=== PATIENT | female | born 1955 | race Caucasian/White ===

== ENCOUNTER 2018-09-12 11:57 | Outpatient (RCR) | payer BC | END 2018-12-11 | disposition home or self-care (01) | LOC: LAB 11:57 | PROVIDERS: ATTEND Pediatrics | DX: R19.7 Diarrhea, unspecified (principal) | CPT/HCPCS: 87015; 87045; 87046; 87899 ==

== ENCOUNTER 2018-10-22 18:29 | Emergency (ER) | payer BC ==
[~2018-10-22] VITALS: Ht 167.6 cm; Wt 93.9 kg
[2018-10-22 18:59] LABS: BASOPHILS % (AUTO) 0 % (0-10); EOSINOPHILS # (AUTO) 0.2 10^3/uL (0.0-0.3); EOSINOPHILS % (AUTO) 1 % (0-10); HEMATOCRIT 35 % (35-52); LYMPHOCYTES # (AUTO) 1.7 X 10^3 (1.0-4.0); LYMPHOCYTES % (AUTO) 16 % (12-44); MEAN CORPUSCULAR HEMOGLOBIN 25 PG (25-34); MEAN CORPUSCULAR HGB CONC 32 G/DL (32-36); MEAN CORPUSCULAR VOLUME 79 FL (80-99); MEAN PLATELET VOLUME 8.2 FL (7.4-10.4); MONOCYTES # (AUTO) 0.7 X 10^3 (0.0-1.0); MONOCYTES % (AUTO) 7 % (0-12); NEUTROPHILS % (AUTO) 75 % (42-75); PLATELET COUNT 314 10^3/uL (130-400); RED CELL DISTRIBUTION WIDTH 16.4 % (10.0-14.5); WHITE BLOOD COUNT 10.6 10^3/uL (4.3-11.0)
--- NOTE | 2018-10-22 18:59 | ED Back Pain ---
General Chief Complaint: Back Problems Stated Complaint: LOWER BACK PAIN/POSS KIDNEY STONE Nursing Triage Note: pt arrived pov with c/o lower left flank pain since tuesday. Pt was seen and put on cipro and is currently taking it. pt says pain is getting worse. Nursing Sepsis Screen: No Definite Risk Source of Information: Patient Exam Limitations: No Limitations History of Present Illness Date Seen by Provider: Oct 22, 2018 Time Seen by Provider: 18:57 Initial Comments To ER per private vehicle with reports of left posterior and anterior leg pain since Tuesday10/18/18. She has associated nausea without vomiting she also has diarrhea. She was seen at [facility] yesterday and diagnosed with urinary tract infection started on Cipro. She reports worsening of symptoms today. No fevers. No burning on urination or any dysuria. Location: Other (left flank) Timing/Duration: 3-4 Days Severity: Moderate Associated Symptoms: denies symptoms Allergies and Home Medications Allergies Coded Allergies: codeine (Verified Allergy, Unknown, 10/22/18) Patient Home Medication List Home Medication List Reviewed: Yes Review of Systems Constitutional: see HPI; No chills, No fever EENTM: see HPI Respiratory: no symptoms reported Cardiovascular: no symptoms reported Gastrointestinal: abdominal pain, diarrhea; No nausea Genitourinary: see HPI; No dysuria, No nocturia Musculoskeletal: no symptoms reported Skin: no symptoms reported Psychiatric/Neurological: No Symptoms Reported Past Xiixpnj-Jhgvko-Rtmzmq Hx Patient Social History Recent Foreign Travel: No Contact w/Someone Who Travel: No Recent Infectious Disease Expo: No Physical Exam Vital Signs Vital Signs - First Documented 10/22/18 18:32 Temp 98.3 Resp 18 B/P (MAP) 147/82 (103) O2 Delivery Room Air Capillary Refill : Less Than 3 Seconds Height, Weight, BMI Height: 5'6.00" Weight: 207lbs. oz. 93.410497lw; BMI Method:Stated General Appearance: WD/WN, Mild Distress (related to pain) HEENT: PERRL/EOMI, TMs Normal Neck: Full Range of Motion, Normal Inspection Respiratory: Normal Breath Sounds, No Accessory Muscle Use, No Respiratory Distress Gastrointestinal: Normal Bowel Sounds, Soft, Tenderness Neurologic/Psychiatric: Alert, Oriented x3 Skin: Normal Color, Warm/Dry Progress/Results/Core Measures Results/Orders Lab Results Laboratory Tests Test 10/22/18 18:53 10/22/18 19:01 Range/Units White Blood Count 10.6 4.3-11.0 10^3/uL Red Blood Count 4.39 4.35-5.85 10^6/uL Hemoglobin 11.0 L 11.5-16.0 G/DL Hematocrit 35 35-52 % Mean Corpuscular Volume 79 L 80-99 FL Mean Corpuscular Hemoglobin 25 25-34 PG Mean Corpuscular Hemoglobin Concent 32 32-36 G/DL Red Cell Distribution Width 16.4 H 10.0-14.5 % Platelet Count 314 130-400 10^3/uL Mean Platelet Volume 8.2 7.4-10.4 FL Neutrophils (%) (Auto) 75 42-75 % Lymphocytes (%) (Auto) 16 12-44 % Monocytes (%) (Auto) 7 0-12 % Eosinophils (%) (Auto) 1 0-10 % Basophils (%) (Auto) 0 0-10 % Neutrophils # (Auto) 8.0 H 1.8-7.8 X 10^3 Lymphocytes # (Auto) 1.7 1.0-4.0 X 10^3 Monocytes # (Auto) 0.7 0.0-1.0 X 10^3 Eosinophils # (Auto) 0.2 0.0-0.3 10^3/uL Basophils # (Auto) 0.0 0.0-0.1 10^3/uL Sodium Level 141 135-145 MMOL/L Potassium Level 3.7 3.6-5.0 MMOL/L Chloride Level 109 H 98-107 MMOL/L Carbon Dioxide Level 22 21-32 MMOL/L Anion Gap 10 5-14 MMOL/L Blood Urea Nitrogen 9 7-18 MG/DL Creatinine 0.62 0.60-1.30 MG/DL Estimat Glomerular Filtration Rate > 60 BUN/Creatinine Ratio 15 Glucose Level 116 H 70-105 MG/DL Calcium Level 9.4 8.5-10.1 MG/DL Corrected Calcium 9.5 8.5-10.1 MG/DL Total Bilirubin 0.5 0.1-1.0 MG/DL Aspartate Amino Transf (AST/SGOT) 12 5-34 U/L Alanine Aminotransferase (ALT/SGPT) 15 0-55 U/L Alkaline Phosphatase 89 40-136 U/L Total Protein 7.1 6.4-8.2 GM/DL Albumin 3.9 3.2-4.5 GM/DL Urine Color YELLOW Urine Clarity CLEAR Urine pH 7 5-9 Urine Specific Ecru 1.010 L 1.016-1.022 Urine Protein NEGATIVE NEGATIVE Urine Glucose (UA) NEGATIVE NEGATIVE Urine Ketones NEGATIVE NEGATIVE Urine Nitrite NEGATIVE NEGATIVE Urine Bilirubin NEGATIVE NEGATIVE Urine Urobilinogen NORMAL NORMAL MG/DL Urine Leukocyte Esterase NEGATIVE NEGATIVE Urine RBC (Auto) NEGATIVE NEGATIVE Urine RBC NONE /HPF Urine WBC NONE /HPF Urine Squamous Epithelial Cells RARE /HPF Urine Crystals NONE /LPF Urine Bacteria NEGATIVE /HPF Urine Casts NONE /LPF Urine Mucus NEGATIVE /LPF Urine Culture Indicated NO My Orders Orders - PALOMO MCINTOSH APRN Ua Culture If Indicated (10/22/18 18:40) Cbc With Automated Diff (10/22/18 18:40) Comprehensive Metabolic Panel (10/22/18 18:40) Iv Heplock-Insert (Order) (10/22/18 18:40) Ct Abd/Pelvis Wo(Kidney Stone) (10/22/18 18:55) Ns Iv 1000 Ml (Sodium Chloride 0.9%) (10/22/18 19:00) Fentanyl Injection (Sublimaze Injection (10/22/18 19:00) Ondansetron Injection (Zofran Injectio (10/22/18 19:00) Ketorolac Injection (Toradol Injection) (10/22/18 19:00) Medications Given in ED Current Medications Medications Dose Ordered Sig/Fracisco Route Start Time Stop Time Status Last Admin Dose Admin Fentanyl Citrate 50 mcg ONCE ONCE IVP 10/22/18 19:00 10/22/18 19:01 DC 10/22/18 19:06 50 MCG Ketorolac Tromethamine 15 mg ONCE ONCE IVP 10/22/18 19:00 10/22/18 19:01 DC 10/22/18 19:06 15 MG Ondansetron HCl 8 mg ONCE ONCE IVP 10/22/18 19:00 10/22/18 19:01 DC 10/22/18 19:05 8 MG Vital Signs/I&O 10/22/18 18:32 Temp 98.3 Resp 18 B/P (MAP) 147/82 (103) O2 Delivery Room Air Blood Pressure Mean: 103 Diagnostic Imaging Diagonstic Imaging: CT Comments NAME: MARGARET EDOUARD [facility] REC#: [id number] PT STATUS: REG ER : 1955 PHYSICIAN: PALOMO MCINTOSH APRN ADMIT DATE: 10/22/18/ER Draft Date of Exam:10/22/18 CT ABD/PELVIS WO(KIDNEY STONE) INDICATION: Left lower flank pain since Tuesday, pain is getting worse. COMPARISON: None. FINDINGS: The lung bases are clear. The liver, spleen, pancreas, adrenal glands and kidneys appear normal. No renal calculi or hydronephrosis is present. Ureters and urinary bladder appear unremarkable. Bladder is nearly decompressed. The uterus is absent. The appendix appears normal. Mild arterial sclerosis is present. Bowel loops demonstrate no inflammatory or obstructive changes. No hernias are present. There is no ascites, free air or abnormal adenopathy. Degenerative changes present in the spine with grade 1 anterolisthesis of L4-5. Moderate central stenosis is present at this level. IMPRESSION: 1. Degenerative changes present in the spine with stenosis at L4-5. 2. Mild arterial sclerosis. 3. There are no acute findings. Dictated on workstation # [id number] Dict: 10/22/181949 Trans: 10/22/181999 [id number] Interpreted by: TEETEE PORTILLO MD Electronically signed by: Departure Impression Primary Impression: Abdominal pain, left lower quadrant Disposition: 01 HOME, SELF-CARE Condition: Stable Departure-Patient Inst. Decision time for Depature: 20:07 Referrals: DOTTIE THOMPSON MD (PCP/Family) Primary Care Physician Patient Instructions: Acute Abdomen (Belly Pain), Adult (DC) Add. Discharge Instructions: 1. Continue the Cipro antibiotics 2. Follow-up with your doctor tomorrow 3. All discharge instructions reviewed with patient and/or family. Voiced understanding. PALOMO MCINTOSH APRN Oct 22, 2018 18:59
[2018-10-22] MEDS ORDERED: KETOROLAC 30 MG/ML VIAL IVP ONE (19:00)
[2018-10-22] MEDS ORDERED: ONDANSETRON 4 MG/2 ML (SDV) Z0FRAN IVP ONE (19:00)
[2018-10-22] MEDS ORDERED: NS IV 1000 ML 1,000 ML IV SCH (19:00)
[2018-10-22] MEDS ORDERED: fentaNYL INJECTION 100 MCG/2 ML AMP IVP ONE (19:00)
[2018-10-22 19:05] LABS: BILIRUBIN,URINE NEGATIVE (NEGATIVE); CLARITY,URINE CLEAR; COLOR,URINE YELLOW; GLUCOSE, URINE (UA) NEGATIVE (NEGATIVE); KETONES,URINE NEGATIVE (NEGATIVE); LEUKOCYTE ESTERASE ,URINE NEGATIVE (NEGATIVE); NITRITE,URINE NEGATIVE (NEGATIVE); PH,URINE 7 (5-9); PROTEIN,URINE NEGATIVE (NEGATIVE); UROBILINOGEN,URINE NORMAL (NORMAL)
[2018-10-22 19:11] LABS: BACTERIA,URINE NEGATIVE /HPF; SQUAMOUS EPITHELIAL CELL,UR RARE /HPF
[2018-10-22 19:19] LABS: ALANINE AMINOTRANSFERASE 15 U/L (0-55); ALBUMIN 3.9 GM/DL (3.2-4.5); ALKALINE PHOSPHATASE 89 U/L (40-136); BILIRUBIN,TOTAL 0.5 MG/DL (0.1-1.0); BUN/CREATININE RATIO 15; CALCIUM 9.4 MG/DL (8.5-10.1); CARBON DIOXIDE 22 MMOL/L (21-32); CHLORIDE 109 MMOL/L (98-107); CREATININE SERUM 0.62 MG/DL (0.60-1.30); GFR ESTIMATED > 60; GLUCOSE 116 MG/DL (70-105); POTASSIUM 3.7 MMOL/L (3.6-5.0); SODIUM 141 MMOL/L (135-145); TOTAL PROTEIN 7.1 GM/DL (6.4-8.2)
--- NOTE | 2018-10-22 19:29 | NUR ---
PT BACK FROM CT
--- NOTE | 2018-10-22 19:34 | NUR ---
PT REPORTS SOME IMPROVEMENT IN PAIN AT THIS TIME. RATES PAIN AT "6" ON 0-10 SCALE. REMAINS AT BEDSIDE, FLUIDS INFUSING W/O INCIDENT.
--- NOTE | 2018-10-22 20:01 | Diagnostic Imaging Report ---
INDICATION: Left lower flank pain since Tuesday, pain is getting worse. COMPARISON: None. FINDINGS: The lung bases are clear. The liver, spleen, pancreas, adrenal glands and kidneys appear normal. No renal calculi or hydronephrosis is present. Ureters and urinary bladder appear unremarkable. Bladder is nearly decompressed. The uterus is absent. The appendix appears normal. Mild arterial sclerosis is present. Bowel loops demonstrate no inflammatory or obstructive changes. No hernias are present. There is no ascites, free air or abnormal adenopathy. Degenerative changes present in the spine with grade 1 anterolisthesis of L4 on L5. Moderate central stenosis is present at this level. IMPRESSION: 1. Degenerative changes present in the spine with stenosis at L4-5. 2. Mild arterial sclerosis. 3. There are no acute findings. Dictated by: Dictated on workstation # [id number]
[2018-10-22] MEDS ORDERED: RX-HYDROCODONE/APAP 5/325 MG #4 TAB PK PO PRN (20:15)
[2018-10-22 20:20] VITALS: BP 114/47
== END 2018-10-22 20:20 | disposition home or self-care (01) ==
LOC: EDUNIT# 18:29 → ER 18:30
DX: R10.32 Left lower quadrant pain (principal); Z88.5 Allergy status to narcotic agent
CPT/HCPCS: 36415; 74176; 80053; 81000; 85025

== ENCOUNTER → 2018-10-27 | Outpatient (CLI) | payer BC ==
[~2018-10-27] MED LIST: HOLD METFORMIN - RECEIVED CONTRAST 20 ML VIAL IV SCH; IOHEXOL 350 MG/ML 100 ML (OMNIPAQUE 350) VIAL IV ONE
--- NOTE | 2018-10-27 13:22 | Diagnostic Imaging Report ---
PROCEDURE: CT abdomen and pelvis with contrast. TECHNIQUE: Multiple contiguous axial images were obtained through the abdomen and pelvis after administration of intravenous contrast. Auto Exposure Controls were utilized during the CT exam to meet ALARA standards for radiation dose reduction. INDICATION: Left lower quadrant pain. COMPARISON: 10/22/2018. FINDINGS: There is no evidence for diverticulitis. The unobstructed kidneys appear nonacute. There is a small cyst 1 cm in the left renal upper pole. The adrenals and pancreas are normal. There is no bile duct dilatation. Liver parenchyma appears normal. There is no mesenteric or retroperitoneal adenopathy. There is no bowel obstruction. The uterus is absent. There is no adnexal lesion. The urinary bladder is unremarkable. The pelvic osseous structures are unremarkable. There is grade 1 L4 on L5 degenerative anterolisthesis without spondylolysis demonstrated. The remaining levels are aligned normally. At the L4-L5 level, disc bulge, endplate osteophytes, and listhesis result in at least moderate degrees of bi-foraminal stenosis somewhat greater right than left. L5-S1 spondylosis results in mild bi-foraminal stenosis. No acute bony abnormality. The lung bases are nonacute. IMPRESSION: No obstructive features, inflammatory process, perforation, ascites, fluid collection, or acute abnormalities. Spondylosis and facet arthrosis with lower lumbar foraminal stenoses and grade 1 anterolisthesis L4 on L5 chronic. Dictated by: Dictated on workstation # [id number]
== END ==
LOC: RAD 12:35
PROVIDERS: ATTEND Pediatrics
DX: M47.816 Spondylosis without myelopathy or radiculopathy, lumbar region (principal); M43.16 Spondylolisthesis, lumbar region; M48.061 Spinal stenosis, lumbar region without neurogenic claudication; R10.9 Unspecified abdominal pain; Z90.710 Acquired absence of both cervix and uterus
CPT/HCPCS: 74177

== ENCOUNTER → 2018-11-24 | Outpatient (CLI) | payer BC ==
[~2018-11-24] MED LIST changes: -IOHEXOL 350 MG/ML 100 ML (OMNIPAQUE 350) VIAL IV ONE
[2018-11-24] MEDS: NS 100 ML (IVPB) BAG IV ONE (11:27)
[2018-11-24] MEDS: IOHEXOL 350 MG/ML 100 ML (OMNIPAQUE 350) VIAL IV ONE (11:27)
[2018-11-24] MEDS: CATHETER FLUSH 10 ML SYR IV PRN (11:28)
--- NOTE | 2018-11-24 11:47 | Diagnostic Imaging Report ---
PROCEDURE: CT chest with contrast only. TECHNIQUE: Multiple contiguous axial images were obtained through the chest after administration of intravenous contrast. Auto Exposure Controls were utilized during the CT exam to meet ALARA standards for radiation dose reduction. INDICATION: Cough for three weeks and abnormal chest X-ray. COMPARISON: Patient's abnormal chest X-ray is not available for comparison. FINDINGS: No axillary lymphadenopathy is detected. No hilar or mediastinal lymphadenopathy is detected. There is no pericardial or pleural fluid detected. Parenchymal evaluation does show some very mild centrilobular emphysematous changes. There is minimal scarring in the superior segment right lower lobe. No infiltrates are seen. No nodule or mass is detected. Bony structures are nonacute. IMPRESSION: Essentially unremarkable CT of the chest. No thoracic lymphadenopathy, effusion or pulmonary mass is detected. Dictated by: Dictated on workstation # [id number]
== END ==
LOC: RAD FS 11:09
PROVIDERS: ATTEND Pediatrics
DX: R05 Cough (principal)
CPT/HCPCS: 71260

== ENCOUNTER → 2019-02-12 | Outpatient (CLI) | payer BC ==
--- NOTE | 2019-02-12 09:49 | Diagnostic Imaging Report ---
PROCEDURE: MRI lumbar spine. TECHNIQUE: Multiplanar, multisequence MRI of the lumbar spine was performed without contrast. INDICATION: Low back pain. COMPARISON: None. FINDINGS: Five lumbar type vertebral bodies for the purposes of this report. Grade 1 anterolisthesis of L4 on L5. Alignment is otherwise unremarkable. Modic type II degenerative endplate changes of L5-S1. Bone marrow signal is otherwise unremarkable. L1-L2: Normal. L2-L3: Normal. L3-L4: No spinal canal or lateral recess narrowing. Disc space height loss and facet arthropathy result in moderate bilateral neural foraminal narrowing. L4-L5: Posterior disc osteophyte complex and facet arthropathy result in moderate bilateral lateral recess narrowing. Moderate to advanced bilateral neural foraminal narrowing. Mild spinal canal narrowing. L5-S1: No spinal canal or lateral recess narrowing. There is moderate left and mild right neural foraminal narrowing. No abnormal signal in the conus which terminates at L2. Normal morphology of the cauda equina. The visualized abdominal and pelvic contents are unremarkable. IMPRESSION: 1. Spondylotic changes result in scattered moderate neural foraminal and lateral recess narrowing as above. 2. No high-grade spinal canal narrowing. 3. No acute osseous findings. Dictated by: Dictated on workstation # [id number]
== END ==
LOC: RAD 08:34
PROVIDERS: ATTEND Nurse Practitioner
DX: M47.816 Spondylosis without myelopathy or radiculopathy, lumbar region (principal); M48.07 Spinal stenosis, lumbosacral region
CPT/HCPCS: 72148

== ENCOUNTER → 2019-04-16 | Outpatient (CLI) | payer BC ==
--- NOTE | 2019-04-16 13:05 | Diagnostic Imaging Report ---
Lumbar spine at 12:16 Indication: Back pain. AP lateral and spot lateral views were obtained. As noted on the prior MRI lumbar spine 02/12/2019, there is slight anterior translation of L4 with respect to L5 and mild narrowing of the disc space at L5-S1. These findings are quite similar to the prior study. The other intervertebral spaces are well-maintained. There is no fracture or acute bony abnormality evident. There is no cervical paraspinal mass. There is mild symmetrical sclerosis at the sacroiliac joints. Impression: 1. There is no evidence for an acute bony abnormality. 2. The degenerative disc and bony disease involving the lower lumbar spine seen on the previous MRI exam does not appear to have progressed. 3. If clinical concern regarding spinal stenosis or nerve encroachment exists, if further imaging is desired, repeat MR lumbar spine exam should be considered. Dictated by: Dictated on workstation # [id number]
== END ==
LOC: RAD 12:02
PROVIDERS: ATTEND Pediatrics
DX: M51.36 Other intervertebral disc degeneration, lumbar region (principal); M47.816 Spondylosis without myelopathy or radiculopathy, lumbar region; R50.9 Fever, unspecified
CPT/HCPCS: 72100

== ENCOUNTER → 2019-04-17 | Outpatient (CLI) | payer BC ==
[~2019-04-17] MED LIST changes: +CATHETER FLUSH 10 ML SYR IV PRN; +IOHEXOL 350 MG/ML 100 ML (OMNIPAQUE 350) VIAL IV ONE; +NS 100 ML (IVPB) BAG IV ONE
--- NOTE | 2019-04-17 12:14 | Diagnostic Imaging Report ---
PROCEDURE: CT abdomen and pelvis with and without contrast. TECHNIQUE: Precontrast acquisitions were acquired through the abdomen and pelvis. Multiple contiguous axial images were obtained through the abdomen and pelvis after the administration of intravenous contrast. Auto Exposure Controls were utilized during the CT exam to meet ALARA standards for radiation dose reduction. INDICATION: Left flank pain. Fever. COMPARISON: CT chest of 11/24/2018. FINDINGS: Lower chest: The lung bases are clear. No pericardial or pleural effusion. Peritoneum: No free intraperitoneal air or fluid. Liver and biliary system: The liver is normal. Cholecystectomy. No biliary duct dilatation. Spleen and Pancreas: New nonenhancing low-attenuation cystic lesion within the spleen measures 4.1 x 3.2 cm. The pancreas enhances normally without mass lesion or peripancreatic inflammatory changes. Adrenals: Normal. tract: The kidneys enhance normally without suspicious mass or obstruction. No renal or ureteral stones. Urinary bladder is distended without wall thickening. Hysterectomy. No adnexal mass. GI tract: Stomach is partially filled with fluid and there is no wall thickening. No bowel obstruction. No pericolonic inflammatory changes. No diverticulitis. Vasculature and Lymph nodes: Normal caliber aorta. No abdominal or pelvic lymphadenopathy. Musculoskeletal: No concerning osseous lesion. Specifically, no features of discitis-osteomyelitis. IMPRESSION: 1. New low-attenuation cystic collection within the spleen is suspicious for abscess given provided history of fever. Dictated by: Dictated on workstation # [id number]
== END ==
LOC: RAD 10:17
PROVIDERS: ATTEND Pediatrics
DX: D64.9 Anemia, unspecified (principal); R10.9 Unspecified abdominal pain; R50.9 Fever, unspecified
CPT/HCPCS: 74178

== ENCOUNTER → 2019-04-19 | Outpatient (CLI) | payer BC | END | disposition home or self-care (01) | LOC: PREOP 05:33 | PROVIDERS: ATTEND Pediatrics | DX: Z01.818 Encounter for other preprocedural examination (principal) ==

== ENCOUNTER → 2019-05-03 | Outpatient (CLI) | payer BC ==
--- NOTE | 2019-05-03 14:42 | Diagnostic Imaging Report ---
INDICATION: Right arm pain near PICC line insertion site. FINDINGS: Right internal jugular vein is patent. The right subclavian and axillary veins are patent. Brachial vein is patent and may contain the PICC line. The basilic and cephalic as well as radial and ulnar veins are patent. No thrombus is seen. No fluid collections are identified. IMPRESSION: No evidence of right upper extremity DVT. Dictated by: Dictated on workstation # [id number]
== END ==
LOC: RAD 13:29
PROVIDERS: ATTEND Pediatrics
DX: M79.89 Other specified soft tissue disorders (principal)

== ENCOUNTER → 2019-06-04 | Outpatient (CLI) | payer BC ==
[2019-06-04 11:04] LABS: CLARITY,URINE TURBID; COLOR,URINE YELLOW; GLUCOSE, URINE (UA) NEGATIVE (NEGATIVE); KETONES,URINE NEGATIVE (NEGATIVE); NITRITE,URINE NEGATIVE (NEGATIVE); PH,URINE 6.5 (5-9); PROTEIN,URINE 2+ (NEGATIVE)
[2019-06-04 11:05] LABS: BACTERIA,URINE NEGATIVE /HPF; BILIRUBIN,URINE 1+ (NEGATIVE); LEUKOCYTE ESTERASE ,URINE 3+ (NEGATIVE); RBC,URINE 25-50 /HPF; WBC,URINE TNTC /HPF
[2019-06-04 11:07] LABS: INR 1.1 (0.8-1.4); PROTHROMBIN TIME PATIENT 14.4 SEC (12.2-14.7)
== END ==
LOC: LAB FS 10:25
PROVIDERS: ATTEND Pediatrics
DX: R30.0 Dysuria (principal); Z95.2 Presence of prosthetic heart valve
CPT/HCPCS: 36415; 81000; 85610; 87088

== ENCOUNTER 2019-08-21 15:35 | Outpatient (RCR) | payer BC ==
[2019-06-07 11:18] LABS: PROTHROMBIN TIME PATIENT 13.8 SEC (12.2-14.7)
[2019-06-11 11:14] LABS: INR 1.1 (0.8-1.4); PROTHROMBIN TIME PATIENT 14.5 SEC (12.2-14.7)
[2019-06-13 10:03] LABS: INR 1.2 (0.8-1.4); PROTHROMBIN TIME PATIENT 15.7 SEC (12.2-14.7)
[2019-06-18 12:41] LABS: INR 1.7 (0.8-1.4)
[2019-06-25 11:46] LABS: INR 1.4 (0.8-1.4); PROTHROMBIN TIME PATIENT 17.4 SEC (12.2-14.7)
[2019-06-29 10:58] LABS: INR 1.8 (0.8-1.4); PROTHROMBIN TIME PATIENT 21.4 SEC (12.2-14.7)
[2019-07-03 08:39] LABS: INR 1.8 (0.8-1.4); PROTHROMBIN TIME PATIENT 21.7 SEC (12.2-14.7)
[2019-07-09 12:01] LABS: PROTHROMBIN TIME PATIENT 23.7 SEC (12.2-14.7)
[2019-07-16 09:25] LABS: INR 3.1 (0.8-1.4); PROTHROMBIN TIME PATIENT 33.3 SEC (12.2-14.7)
[2019-07-23 08:33] LABS: INR 3.2 (0.8-1.4); PROTHROMBIN TIME PATIENT 34.6 SEC (12.2-14.7)
[2019-08-07 08:33] LABS: INR 4.4 (0.8-1.4); PROTHROMBIN TIME PATIENT 44.2 SEC (12.2-14.7)
[2019-08-14 07:43] LABS: PROTHROMBIN TIME PATIENT 23.6 SEC (12.2-14.7)
[2019-08-21 16:19] LABS: INR 2.1 (0.8-1.4); PROTHROMBIN TIME PATIENT 24.5 SEC (12.2-14.7)
== END 2019-09-05 | disposition home or self-care (01) ==
LOC: LAB FS 15:35
PROVIDERS: ATTEND Pediatrics
DX: Z95.2 Presence of prosthetic heart valve (principal)
CPT/HCPCS: 36415; 85610

== ENCOUNTER 2021-10-03 16:41 | Emergency (ER) | payer BC ==
[~2021-10-03] VITALS: Ht 162.5 cm; Wt 95.4 kg
[2021-10-03 17:00] LABS: BASOPHILS % (AUTO) 1 % (0-10); EOSINOPHILS # (AUTO) 0.5 10^3/uL (0.0-0.3); EOSINOPHILS % (AUTO) 6 % (0-10); HEMATOCRIT 37 % (35-52); HEMOGLOBIN 12.1 g/dL (11.5-16.0); LYMPHOCYTES # (AUTO) 1.5 10^3/uL (1.0-4.0); LYMPHOCYTES % (AUTO) 18 % (12-44); MEAN CORPUSCULAR HEMOGLOBIN 29 pg (25-34); MEAN CORPUSCULAR HGB CONC 33 g/dL (32-36); MEAN CORPUSCULAR VOLUME 87 fL (80-99); MEAN PLATELET VOLUME 9.5 fL (9.0-12.2); MONOCYTES # (AUTO) 0.6 10^3/uL (0.0-1.0); MONOCYTES % (AUTO) 7 % (0-12); NEUTROPHILS # (AUTO) 5.5 10^3/uL (1.8-7.8); NEUTROPHILS % (AUTO) 68 % (42-75); PLATELET COUNT 216 10^3/uL (130-400); WHITE BLOOD COUNT 8.1 10^3/uL (4.3-11.0)
[2021-10-03] MEDS ORDERED: TRANEXAMIC ACID 100 MG/ML 10 ML INJECTION ONE (17:00)
--- NOTE | 2021-10-03 17:04 | ED EENT ---
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 Started last night for about an hour, occurred again this morning for about an hour, and then started again just prior to arrival. Denies any trauma to her nose. Has not had her INR checked in a couple of months. Has never really had a nosebleed similar to this in the past. Denies any chest pain, shortness of breath, abdominal pain, nausea, vomiting, diarrhea, weakness, numbness, or any other concerns Allergies and Home Medications Allergies Coded Allergies: codeine (Verified Allergy, Unknown, 10/22/18) Patient Home Medication List Home Medication List Reviewed: Yes Review of Systems Review of Systems Constitutional: No chills, No fever Eyes: Denies Blurred Vision Ears: No Symptoms Reported Nose: epistaxis Mouth: no symptoms reported Throat: no symptoms reported Respiratory: no symptoms reported Cardiovascular: no symptoms reported Gastrointestinal: no symptoms reported Musculoskeletal: no symptoms reported Skin: no symptoms reported Neurological: No Symptoms Reported Hematologic/Lymphatic: No Symptoms Reported Immunological/Allergic: no symptoms reported All Other Systems Reviewed Negative Unless Noted: Yes Past Yzgmtab-Rxrnqe-Eibnjk Hx Patient Social History Tobacco Use?: No Past Medical History Surgeries: Yes (FINGER REPAIR) Section, Gallbladder, Hysterectomy Respiratory: No Cardiac: No Neurological: No [employer] History: Hysterectomy Genitourinary: No Gastrointestinal: No Musculoskeletal: No Endocrine: No HEENT: No Cancer: No Psychosocial: No Integumentary: No Physical Exam Vital Signs Vital Signs - First Documented 10/03/21 17:45 Temp 36.4 Pulse 86 Resp 18 B/P (MAP) 134/106 (115) Pulse Ox 97 O2 Delivery Room Air Height, Weight, BMI Height: 5'6.00" Weight: 207lbs. oz. 93.635664co; BMI Method:Stated General Appearance: WD/WN, no apparent distress Eyes: bilateral eye normal inspection, bilateral eye PERRL Ears: bilateral ear auricle normal, bilateral ear canal normal Nose: active bleeding (Right nare anterior bleed) Mouth/Throat: normal mouth inspection, pharynx normal Neck: non-tender, full range of motion, supple, normal inspection Cardiovascular: regular rate, rhythm, no edema, no murmur Respiratory: chest non-tender, lungs clear, normal breath sounds, no respiratory distress, no accessory muscle use Gastrointestinal: normal bowel sounds, non tender, soft; No distended, No guarding, No rebound Neurologic/Psychiatric: no motor/sensory deficits, alert, normal mood/affect Skin: normal color, warm/dry Procedures/Interventions Progress Anterior packing with a Rhino Rocket with good hemostasis afterwards Progress/Results/Core Measures Results/Orders Lab Results Laboratory Tests Test 10/03/21 16:58 Range/Units White Blood Count 8.1 4.3-11.0 10^3/uL Red Blood Count 4.24 3.80-5.11 10^6/uL Hemoglobin 12.1 11.5-16.0 g/dL Hematocrit 37 35-52 % Mean Corpuscular Volume 87 80-99 fL Mean Corpuscular Hemoglobin 29 25-34 pg Mean Corpuscular Hemoglobin Concent 33 32-36 g/dL Red Cell Distribution Width 13.5 10.0-14.5 % Platelet Count 216 130-400 10^3/uL Mean Platelet Volume 9.5 9.0-12.2 fL Immature Granulocyte % (Auto) 0 % Neutrophils (%) (Auto) 68 42-75 % Lymphocytes (%) (Auto) 18 12-44 % Monocytes (%) (Auto) 7 0-12 % Eosinophils (%) (Auto) 6 0-10 % Basophils (%) (Auto) 1 0-10 % Neutrophils # (Auto) 5.5 1.8-7.8 10^3/uL Lymphocytes # (Auto) 1.5 1.0-4.0 10^3/uL Monocytes # (Auto) 0.6 0.0-1.0 10^3/uL Eosinophils # (Auto) 0.5 H 0.0-0.3 10^3/uL Basophils # (Auto) 0.0 0.0-0.1 10^3/uL Immature Granulocyte # (Auto) 0.0 0.0-0.1 10^3/uL Prothrombin Time 38.5 H 12.2-14.7 SEC INR Comment 3.9 H 0.8-1.4 Activated Partial Thromboplast Time 88 H 24-35 SEC My Orders Orders - BELL LUCAS MD Oxymetazoline 0.05% Nasal Stearns (Afrin 0. (10/03/21 21:00) Tranexamic Acid Injection (Cyklokapron I (10/03/21 17:00) Cbc With Automated Diff (10/03/21 16:51) Protime With Inr (10/03/21 16:51) Partial Thromboplastin Time (10/03/21 16:51) Oxymetazoline 0.05% Nasal Stearns (Afrin 0. (10/03/21 17:20) Medications Given in ED Current Medications Medications Dose Ordered Sig/Fracisco Route Start Time Stop Time Status Last Admin Dose Admin Tranexamic Acid ONCE ONCE NA 10/03/21 17:00 10/03/21 17:01 DC 10/03/21 17:51 250 MG Vital Signs/I&O 10/03/21 17:45 Temp 36.4 Pulse 86 Resp 18 B/P (MAP) 134/106 (115) Pulse Ox 97 O2 Delivery Room Air Progress Progress Note : Progress Note 65-year-old female with above history coming in due to epistaxis. ABCs were intact and vitals are stable on presentation. Physical exam with some active b leeding from the right anterior nare. We apply pressure, used Afrin, and later used TXA which did not work. Then did anterior packing with rhino rocket. Basic labs drawn including CBC and PT/INR. INR elevated at 3.9 with her typical goal around 2.5-2.7. I believe she is stable for discharge with outpatient follow- up. She was sent home with strict return precautions. Departure Impression Primary Impression: Epistaxis Additional Impressions: Anticoagulated Supratherapeutic INR Disposition: HOME, SELF-CARE Condition: Stable Departure-Patient Inst. Referrals: DOTTIE THOMPSON MD (PCP) Primary Care Physician CRYUS LOVE MD Patient Instructions: Nosebleeds (DC) Add. Discharge Instructions: Please call your regular doctor on Tuesday to have the packing removed. Sometimes they prefer this be removed by an ENT doctor, that would be Dr. Love. You can call his office as well. Take antibiotics as long as the packing is in place. You can spray the Afrin up your nose if you have bleeding again and apply pressure for at least 15 minutes like I showed you. Scripts Cephalexin (Cephalexin) 500 Mg Tablet 500 MG PO QID for 7 Days, #28 TAB Prov: BELL LUCAS MD 10/03/21 BELL LUCAS MD Oct 03, 2021 17:04
[2021-10-03 17:12] LABS: INR 3.9 (0.8-1.4); PROTHROMBIN TIME PATIENT 38.5 SEC (12.2-14.7)
[2021-10-03] MEDS ORDERED: OXYMETAZOLINE (AFRIN) 0.05% NA 30 ML BTL ONE (17:20)
[2021-10-03] MEDS ORDERED: CEPH500T PO (18:46)
[2021-10-03] MEDS ORDERED: CEPHALEXIN 250 MG (KEFLEX) CAP PO STA (18:47)
[2021-10-03 18:51] VITALS: BP 134/106
[2021-10-03] MEDS ORDERED: OXYMETAZOLINE (AFRIN) 0.05% NA 30 ML BTL SCH (21:00)
== END 2021-10-03 18:55 | disposition home or self-care (01) ==
LOC: EDUNIT# 16:41 → ER FS 16:42
DX: R04.0 Epistaxis (principal); Z79.01 Long term (current) use of anticoagulants
CPT/HCPCS: 36415; 85025; 85610; 85730; 99283